=== PATIENT | male | born 1990 | race Hispanic/Latino ===

== ENCOUNTER 2018-03-02 20:14 | Emergency (ER) | payer OTHER ==
[~2018-03-02] VITALS: Ht 167.6 cm; Wt 118.0 kg
[~2018-03-02 20:14] MED LIST: ALEVE220 M1 PO; AMOXICILLIN500 MG PO; KEFLEX500 MG PO; NO HOME MEDS; ULTRAM50 M1 PO
[2018-03-02] MEDS ORDERED: IBUPROFEN600 MG PO (21:46)
[2018-03-02 22:19] VITALS: BP 151/74
== END 2018-03-02 22:10 | disposition home or self-care (01) | DRG 605 ==
LOC: ED 20:14
DX: S00.81XA Abrasion of other part of head, initial encounter (principal); S90.31XA Contusion of right foot, initial encounter; V47.5XXA Car driver injured in collision with fixed or stationary object in traffic accident, initial encounter; Y92.410 Unspecified street and highway as the place of occurrence of the external cause